=== PATIENT | female | born 1960 | race Caucasian/White ===

== ENCOUNTER → 2017-07-24 | Outpatient (CLI) | payer BC, OTHER ==
[~2017-07-24] VITALS: Ht 165.1 cm; Wt 131.5 kg
[~2017-07-24] MED LIST: ASPIR 8181 M1 PO; DIOVAN320 MG PO; FISH OIL 1,001000 M2 PO; HYDROCHLOROTHIA25 M2 PO; LIPITOR10 MG PO; NORVASC5 MG PO; OMEPRAZOLE40 MG PO; POTASSIUM20 PO; WELLBUTRIN XL300 MG PO; XANAX 0.5 MG0.5 MG PO; XANAX1 MG PO
--- NOTE | ~2017-07-24 | CATHLAB ---
[facility] [address] [place] [address] INVASIVE PROCEDURE REPORT Name: ROSENDA PENA Room #: REG [facility] BY [facility] ANSONDelmer#: [id number] Admission: 07/24/17 Attend Phys: Sebastian Richards MD Discharge: Date of : 62 Date of Service: 07/24/17 0947 Report #: [id number] THIS REPORT FOR: //name// APPROVED REPORT Patient Details Patient Status: Out-Patient Room #: The patient is a 57 year-old female Event Personnel Sebastian Richards Classification Inspector, Alberto Sherwood RN, Erica Gaviria, Kailey Brown RTR, DIRECTOR OF [employer] Monitor Procedures Performed Art Access - R radial artery Coronary Angiography Only [id number] CORANG 63480 Initial Mod Sed Same Phys/QHP Gr5y 405841 Hemostasis with Hemoband Indication Dyspnea, Positive stress test, Pre-op clearance Risk Factors Obesity, Family History, Hypercholesterolemia, Hypertension Procedure Narrative The patient was brought electively to the Cardiac Catheterization Laboratory and was prepped and draped in a sterile manner. The Right Wrist^ was infiltrated with 1% Lidocaine subcutaneous anesthesia. A TRANSRADIAL SLENDER 6F GLIDESHEATH KIT #[id number] sheath was inserted into the Right Radial Artery^. Coronary angiography was performed using coronary diagnostic catheters. The right coronary system was accessed and visualized with a JR 4 catheter. The left coronary system was accessed and visualized with a JL 3.5 catheter. Closure device was deployed with a Fr VASC BAND R 24CM #[id number]. The patient tolerated the procedure well and there were no complications associated with the procedure. Intraoperative Conscious Sedation Sedation start time: 09:01 Case end Time: 09:15 Fentanyl 50 mcg Versed 1.5 mg Fluoro Time: 3.00 minutes Dose: DAP 6129.41 cGycm2 676 mGy [facility] [address] INVASIVE PROCEDURE REPORT Name: ROSENDA PENA Room #: REG [facility]#: [id number] Admission: 07/24/17 Attend Phys: Sebastian Richards MD Discharge: Date of : 62 Date of Service: 07/24/17 0947 Report #: [id number] Contrast Type and Amount: Omnipaque 65 ml Coronary Angiography The patient's coronary anatomy is right dominant. Diagnostic Cath Left Main large-caliber vessel, with no flow-limiting lesions. LAD Moderate to large size caliber vessel, traveling down the anterior wall and wrapping around the apex. There is mild disease in the mid segment, 30%. Diagonal 1 Patent vessel, with no flow-limiting lesions. Circumflex Patent vessel with mild disease in the proximal segment, 20%. OM1 Moderate size caliber vessel, with no flow-limiting lesions. OM2 Mild disease in the proximal segment, 30%. Right Coronary Mild disease in the proximal segment, 20%. R PDA Patent vessel, no flow-limiting lesions. RPLV Patent vessel, with no flow-limiting lesions. Left Ventriculography Left Ventriculography was not performed. Ejection Fraction was >55% based off patient's Nuclear Cardiac Stress Test. Hemodynamics The aortic pressure is 120/79 mmHg with a mean of 98 mmHg. Conclusion 1. Mild, nonobstructive CAD. 2. Aggressive risk factor management. <ELECTRONICALLY SIGNED> By: Sebastian Richards MD 07/24/1747 6 Sebastian Richards MD /INF
--- NOTE | ~2017-07-24 | EKG ---
[place] [address] [facility] [place] [address] ELECTROCARDIOGRAM REPORT Name: LACEYShaneROSENDA Room #: REG [facility]#: [id number] Admission: 07/24/17 Attend Phys: Sebastian Richards MD Discharge: Date of : 62 Report #: [id number] THIS REPORT FOR: //name// [facility] Test Date: 2017-07-24 Test Time: 06:54:20 Pat Name: ROSENDA PENA Department: Room: Gender: F It Network Administrator: Shane RICH : 1960 Requested By: Sebastian Richards Order Number: [id number] MD: Oscar Du Measurements Intervals [place] Rate: 75 P: 60 FL: 192 QRS: 8 QRSD: 105 T: 29 QT: 403 QTc: 451 Interpretive Statements Sinus rhythm No significant abnormality Compared to ECG 08/20/1999 07:28:54 No significant changes Electronically Signed On 07-24-2017 8:19:29 [employer]IE FASTENER by Oscar Du [email or web address] <ELECTRONICALLY SIGNED> By: Oscar Du MD, [facility] 07/24/17 0819 [id number] Oscar Du MD, FACC /EPI
[2017-07-24 07:24] LABS: HEMATOCRIT 40.5 % (37.0-47.0); HEMOGLOBIN 13.3 gm/dL (12.0-15.0); MCH 28.9 pg (26.0-34.0); MCHC 32.9 g/dL (28.0-37.0); MCV 87.7 fL (80.0-100.0); RBC 4.62 mil/uL (4.20-5.00); RDW 14.1 % (10.5-14.5); WBC 8.7 thou/uL (4.0-11.0)
[2017-07-24 07:30] VITALS: BP 132/74
[2017-07-24 07:35] LABS: CALCIUM 9.5 mg/dL (8.5-10.1); CREATININE 0.9 mg/dL (0.6-1.0); POTASSIUM 3.3 mmol/L (3.5-5.1)
== END | disposition home or self-care (01) ==
LOC: CATH 06:34
PROVIDERS: Internal Medicine Cardiovascular Disease
DX: I25.10 Atherosclerotic heart disease of native coronary artery without angina pectoris (principal); I10 Essential (primary) hypertension; E78.00 Pure hypercholesterolemia, unspecified; E66.09 Other obesity due to excess calories; G47.33 Obstructive sleep apnea (adult) (pediatric); K21.9 Gastro-esophageal reflux disease without esophagitis; F41.9 Anxiety disorder, unspecified; Z90.49 Acquired absence of other specified parts of digestive tract; Z98.890 Other specified postprocedural states; Z87.891 Personal history of nicotine dependence; Z82.49 Family history of ischemic heart disease and other diseases of the circulatory system; Z79.82 Long term (current) use of aspirin; Z79.899 Other long term (current) drug therapy